=== PATIENT | female | born 1985 | race Hispanic/Latino ===

== ENCOUNTER 2020-04-22 22:49 | Emergency (ER) | payer SELFPAY ==
[2020-04-22] MEDS ORDERED: SODIUM CHLORIDE 0.9% 1000 ML 1,000 ML IV ONE ×2 (22:56)
[2020-04-22] MEDS ORDERED: NALOXONE 0.4 MG/1 ML INJ IV PRN (22:56)
--- NOTE | 2020-04-22 22:58 | Emergency Department Report ---
History of Present Illness - General Stated Complaint: HEROIN O/D Time Seen by Provider: 04/22/20 22:54 Source: patient, EMS Mode of arrival: Stretcher Limitations: No Limitations - History of Present Illness Initial Comments: Patient is a 34-year-old female that presents emergency room for an overdose. Patient was brought in by EMS. EMS states the patient was unresponsive and they gave her 1 mg of Narcan she woke up. Patient states that she uses heroin frequently but is the first time she has overdose. Patient states she was not trying to hurt herself she was just trying to get high. Patient denies suicidal and homicidal ideations. Patient denies pain. Patient denies headache. Patient denies recent travel. Patient denies recent international travel. Patient denies exposure to the novel coronavirus. Patient denies sick contacts. Patient denies fever and chills. Patient denies cough. Patient denies diarrhea. Patient denies coming in contact with anybody with symptoms of the novel coronavirus. Complaint: accidental overdose -: Sudden Context: Accidental Overdose: wanted to get high Treatments Prior to Arrival: oxygen, narcan - Related Data Allergies Allergy/AdvReac Type Severity Reaction Status Date / Time No Known Allergies Allergy Unverified 04/23/20 01:05 ED Review of Systems ROS: Stated complaint: HEROIN O/D Other details as noted in HPI Constitutional: denies: chills, fever Eyes: denies: eye pain, eye discharge, vision change ENT: denies: ear pain, throat pain Respiratory: denies: cough, shortness of breath, wheezing Cardiovascular: denies: chest pain, palpitations Endocrine: no symptoms reported Gastrointestinal: denies: abdominal pain, nausea, diarrhea Genitourinary: denies: urgency, dysuria, discharge Musculoskeletal: denies: back pain, joint swelling, arthralgia Skin: denies: rash, lesions Neurological: denies: headache, weakness, paresthesias Psychiatric: denies: anxiety, depression Hematological/Lymphatic: denies: easy bleeding, easy bruising ED Past Medical Hx - Past Medical History Previous Medical History?: No - Surgical History Past Surgical History?: No - Family History Family history: no significant - Social History Smoking Status: Current Every Day Smoker Substance Use Type: Other ED Physical Exam - General Limitations: No Limitations General appearance: alert, in no apparent distress - Head Head exam: Present: atraumatic, normocephalic - Eye Eye exam: Present: normal appearance - ENT ENT exam: Present: mucous membranes moist - Neck Neck exam: Present: normal inspection - Respiratory Respiratory exam: Present: normal lung sounds bilaterally. Absent: respiratory distress - Cardiovascular Cardiovascular Exam: Present: regular rate, normal rhythm. Absent: systolic murmur, diastolic murmur, rubs, gallop - GI/Abdominal GI/Abdominal exam: Present: soft, normal bowel sounds - Extremities Exam Extremities exam: Present: normal inspection - Back Exam Back exam: Present: normal inspection - Neurological Exam Neurological exam: Present: alert, oriented X3 - Psychiatric Psychiatric exam: Present: normal affect, normal mood - Skin Skin exam: Present: warm, dry, intact, normal color. Absent: rash ED Course Vital Signs 04/22/20 04/22/20 04/22/20 22:56 23:00 23:12 Pulse Rate 64 65 59 L Respiratory 17 11 L 13 Rate Blood Pressure 109/73 109/73 O2 Sat by Pulse Oximetry 04/22/20 04/22/20 04/22/20 23:15 23:30 23:45 Pulse Rate 61 61 63 Respiratory 12 14 9 L Rate Blood Pressure 87/51 84/47 94/51 O2 Sat by Pulse 100 Oximetry 04/23/20 04/23/20 04/23/20 00:00 00:15 00:30 Pulse Rate 82 78 75 Respiratory 13 21 18 Rate Blood Pressure 100/57 102/53 93/52 O2 Sat by Pulse 100 100 100 Oximetry - Reevaluation(s) Reevaluation #1: Patient is awake alert and oriented x4. Patient vital signs are stable. Patient denies pain. 04/23/20 00:01 Reevaluation #2: Patient answering questions appropriately. Patient vital signs stable. 04/23/20 01:03 Reevaluation #3: I discussed all results and clinical findings with patient. I discussed plan of care with patient. Patient agrees with plan of care. Patient is stable for discharge. Patient will be discharged home. Patient given discharge instructions. Patient voiced understanding of discharge instructions. 04/23/20 01:45 ED Medical Decision Making - Lab Data Result diagrams: 04/22/20 23:01 04/22/20 23:01 - Medical Decision Making Patient is a 34-year-old female that presents emergency room for heroin overdose. Patient is seen and was given Narcan. Patient responded well to became easily arousable. On initial evaluation, the patient is alert and o riented x4. Patient stated it was an accidental overdose. Patient denies suicidal ideations. Patient denies any intent of hurting herself. Patient given fluids. Patient not require any further Narcan. Patient monitored for several hours. Patient's labs are essentially unremarkable. - Differential Diagnosis Take responsiveness, drug overdose, Critical care attestation.: If time is entered above; I have spent that time in minutes in the direct care of this critically ill patient, excluding procedure time. ED Disposition Clinical Impression: Decreased responsiveness Heroin overdose Qualifiers: Encounter type: initial encounter Injury intent: accidental or unintentional Qualified Code(s): T40.1X1A - Poisoning by heroin, accidental (unintentional), initial encounter Disposition: TO HOME OR SELFCARE Is pt being admited?: No Does the pt Need Aspirin: No Condition: Stable Instructions: Accidental Drug Poisoning, Adult, Opioid Overdose Additional Instructions: Patient to follow-up with primary care in 2 to 3 days. Patient to follow-up with both to rehab In 2 to 3 days. Patient to utilize resources given in the ER. Patient to avoid drug use. Patient to rest. Patient to increase water. Patient to return to the ER if condition worsens, changes or new symptoms arise. Patient given a list of substance abuse programs. Referrals: PRIMARY CARE, [Primary Care Provider] - 2-3 Days Time of Disposition: 01:34
[2020-04-22 23:43] LABS: Alanine Aminotransferase 8 units/L (7-56); Albumin 4.7 g/dL (3.9-5); BUN/Creatinine Ratio 18; Blood Urea Nitrogen 16 mg/dL (7-17); Calcium 8.6 mg/dL (8.4-10.2); Hemolysis Index 2
[2020-04-22 23:47] LABS: Basophils % (Auto) 0.3 % (0.0-1.8); Eosinophils # (Auto) 0.2 K/mm3 (0.0-0.4); Eosinophils % (Auto) 1.4 % (0.0-4.3); Hematocrit 39.6 % (30.3-42.9); Hemoglobin 13.2 gm/dl (10.1-14.3); Lymphocytes # (Auto) 2.9 K/mm3 (1.2-5.4); Lymphocytes % (Auto) 21.9 % (13.4-35.0); Mean Corpuscular HGB Conc 33 % (30-34); Mean Corpuscular Volume 94 fl (79-97); Monocytes # (Auto) 0.4 K/mm3 (0.0-0.8); Platelet Count 269 K/mm3 (140-440); Red Blood Count 4.21 M/mm3 (3.65-5.03); Red Cell Distribution Width 13.7 % (13.2-15.2)
[2020-04-23 00:48] VITALS: BP 93/52
[2020-04-23 01:39] LABS: Amphetamine Screen,Urine PRESUMPTIVE NEGATIVE; Benzodiazepines Screen,Urine PRESUMPTIVE NEGATIVE; Cannabinoid Screen,Urine PRESUMPTIVE POSITIVE; Cocaine Screen,Urine PRESUMPTIVE NEGATIVE; Methadone Screen,Urine PRESUMPTIVE NEGATIVE; Opiate Screen,Urine PRESUMPTIVE NEGATIVE
[2020-04-23 01:40] LABS: Bacteria,Urine 1+ /HPF (Negative); Bilirubin,Urine NEG (Negative); Blood,Urine SM (Negative); Color,Urine Yellow (Yellow); Hyaline Casts,Urine 3 /LPF; Mucus,Urine 2+ /HPF; Urobilinogen,Urine < 2.0 mg/dL (<2.0)
== END 2020-04-23 02:04 | disposition home or self-care (01) ==
LOC: ED 22:49
DX: T40.1X1A Poisoning by heroin, accidental (unintentional), initial encounter (principal); F17.200 Nicotine dependence, unspecified, uncomplicated; X58.XXXA Exposure to other specified factors, initial encounter
CPT/HCPCS: 36415; 80053; 80307; 81001; 84703; 85025; 96360; 96361; 99284; J7030; 80320; G0480